=== PATIENT | female | born 1955 | race Caucasian/White ===

== ENCOUNTER 2019-07-16 11:41 | Inpatient (IN) ==
[2019-07-16] MEDS ORDERED: Ondansetron ODT 4 MG TAB.RAPDIS SL PRN (14:12)
[2019-07-16] MEDS: *HR* OxyCODONE Immed Rel 5 MG TABLET PO PRN (16:33)
[2019-07-16] MEDS: Aspirin Enteric Coated 81 MG Tablet PO SCH (20:12)
[2019-07-16] MEDS: Multivit/Ca/Min/Fe/FA 1 TAB TABLET PO SCH (20:14)
[2019-07-16] MEDS: FLUoxetine 20 MG CAPSULE PO SCH (20:14)
[2019-07-16] MEDS: valACYclovir 500 MG TABLET PO SCH (20:15)
[2019-07-16] MEDS ORDERED: Cholecalciferol (D-3) 1,000 UNIT (25MCG) TABLET PO SCH (21:00)
[2019-07-17] MEDS: *HR* OxyCODONE Immed Rel 5 MG TABLET PO PRN ×2 (00:55→19:59)
[2019-07-17 06:12] LABS: Basophils # 0.1 K/mcL (0.0-0.2); Basophils % 0.6 %; Eosinophils # 0.4 K/mcL (0.0-0.6); Eosinophils % 4.3 %; Hematocrit 29.7 % (35.3-44.9); Hemoglobin 10.1 g/dL (11.5-15.4); Immature Granulocytes % 0.3 % (0-4); Lymphocytes # 5.1 K/mcL (0.6-4.6); Lymphocytes % 54.6 %; Mean Corpuscular Hemoglobin 33.6 pg (28.0-33.3); Mean Corpuscular Volume 98.7 fL (83.0-100.0); Mean Platelet Volume 11.8 fL (9.4-12.4); Monocytes # 1.4 K/mcL (0.0-1.3); Monocytes % 14.6 %; Neutrophils # 2.4 K/mcL (1.6-8.9); Platelet Count 259 K/mcL (140-400); Red Blood Count 3.01 M/mcL (3.82-4.97); Red Cell Distribution Width 12.9 % (11.5-14.5); Segmented Neutrophils % 25.6 %; White Blood Count 9.4 K/mcL (4.3-11.1)
[2019-07-17 06:26] LABS: BUN/Creatinine Ratio 18 (6-26); Blood Urea Nitrogen 12 mg/dL (8-23); Calcium 8.4 mg/dL (8.6-10.3); Carbon Dioxide 28 mEq/L (23-29); Chloride 105 mEq/L (98-107); Glucose 96 mg/dL (70-105); Osmolality,Calculated 286 (280-300); Sodium 138 mEq/L (136-145); eGFR For African Americans > 60 (> 60); eGFR For Non-African Americans > 60 (> 60)
[2019-07-17] MEDS ORDERED: Cholecalciferol (D-3) 1,000 UNIT (25MCG) TABLET PO ONE (08:09)
[2019-07-17] MEDS ORDERED: VIT B COMPLEX AND C PO SCH (09:00)
[2019-07-17] MEDS ORDERED: [UNRECOGNIZED DRUG - OTHER] PO SCH (09:00)
[2019-07-17] MEDS ORDERED: FOLIC ACID PO SCH (09:00)
[2019-07-17] MEDS: Cholecalciferol (D-3) 1,000 UNIT (25MCG) TABLET PO SCH (16:18)
[2019-07-17] MEDS: Multivit/Ca/Min/Fe/FA 1 TAB TABLET PO SCH (19:59)
[2019-07-17] MEDS: FLUoxetine 20 MG CAPSULE PO SCH (19:59)
[2019-07-17] MEDS: hydrOXYzine pamoate 25 MG CAPSULE PO PRN (19:59)
[2019-07-17] MEDS: Aspirin Enteric Coated 81 MG Tablet PO SCH (20:00)
[2019-07-17] MEDS: valACYclovir 500 MG TABLET PO SCH (20:00)
[2019-07-18] MEDS: *HR* Enoxaparin 40 MG/0.4 ML SYRINGE SQ SCH (05:01)
[2019-07-18] MEDS: Cholecalciferol (D-3) 1,000 UNIT (25MCG) TABLET PO SCH (09:08)
[2019-07-18] MEDS: *HR* OxyCODONE Immed Rel 5 MG TABLET PO PRN (09:12)
[2019-07-18] MEDS: Aspirin Enteric Coated 81 MG Tablet PO SCH (19:30)
[2019-07-18] MEDS: FLUoxetine 20 MG CAPSULE PO SCH (19:30)
[2019-07-18] MEDS: hydrOXYzine pamoate 25 MG CAPSULE PO PRN (19:31)
[2019-07-18] MEDS: Multivit/Ca/Min/Fe/FA 1 TAB TABLET PO SCH (19:32)
[2019-07-18] MEDS: valACYclovir 500 MG TABLET PO SCH (19:32)
[2019-07-19] MEDS: *HR* OxyCODONE Immed Rel 5 MG TABLET PO PRN ×3 (00:32→15:35)
[2019-07-19 00:36] LABS: Bilirubin,Urine Negative (Negative); Blood,Urine Negative (Negative); Clarity,Urine Slightly Cloudy (Clear); Glucose,Urine (UA) Normal (Normal); Ketones,Urine Negative (Negative); Leukocyte Esterase,Urine Small (Negative); Nitrite,Urine Negative (Negative); PH,Urine 6.5 pH Units (5.0-8.0); Protein,Urine Negative (Neg-Trace); Specific Gravity,Urine 1.015 (1.010-1.025); Urobilinogen,Urine Normal (Normal)
[2019-07-19 00:55] LABS: Color,Urine Yellow (Yellow)
[2019-07-19 00:56] LABS: Bacteria,Urine Few per hpf (None-Few); Squamous Epithelial Cell,Urine Few per lpf (None-Few)
[2019-07-19] MEDS: *HR* Enoxaparin 40 MG/0.4 ML SYRINGE SQ SCH (04:31)
[2019-07-19] MEDS: Cholecalciferol (D-3) 1,000 UNIT (25MCG) TABLET PO SCH (08:22)
[2019-07-19] MEDS: valACYclovir 500 MG TABLET PO SCH (20:48)
[2019-07-19] MEDS: FLUoxetine 20 MG CAPSULE PO SCH (20:49)
[2019-07-19] MEDS: Multivit/Ca/Min/Fe/FA 1 TAB TABLET PO SCH (20:49)
[2019-07-19] MEDS: Aspirin Enteric Coated 81 MG Tablet PO SCH (20:49)
[2019-07-19] MEDS: hydrOXYzine pamoate 25 MG CAPSULE PO PRN (20:49)
[2019-07-19] MEDS ORDERED: Pregabalin 25 MG CAPSULE PO ONE (22:12)
[2019-07-20] MEDS: *HR* Enoxaparin 40 MG/0.4 ML SYRINGE SQ SCH (04:47)
[2019-07-20] MEDS: *HR* OxyCODONE Immed Rel 5 MG TABLET PO PRN ×2 (04:47→23:24)
[2019-07-20] MEDS: Cholecalciferol (D-3) 1,000 UNIT (25MCG) TABLET PO SCH (08:24)
[2019-07-20] MEDS: Pregabalin 50 MG CAPSULE PO SCH ×2 (16:25→21:20)
[2019-07-20] MEDS: Aspirin Enteric Coated 81 MG Tablet PO SCH (21:18)
[2019-07-20] MEDS: Multivit/Ca/Min/Fe/FA 1 TAB TABLET PO SCH (21:18)
[2019-07-20] MEDS: FLUoxetine 20 MG CAPSULE PO SCH (21:18)
[2019-07-20] MEDS: valACYclovir 500 MG TABLET PO SCH (21:20)
[2019-07-20] MEDS: Sennosides/Docusate Sodium TABLET PO SCH (21:21)
[2019-07-20] MEDS: hydrOXYzine pamoate 25 MG CAPSULE PO PRN (21:21)
[2019-07-21] MEDS: *HR* Enoxaparin 40 MG/0.4 ML SYRINGE SQ SCH (06:36)
[2019-07-21] MEDS: Cholecalciferol (D-3) 1,000 UNIT (25MCG) TABLET PO SCH (08:36)
[2019-07-21] MEDS: *HR* OxyCODONE Immed Rel 5 MG TABLET PO PRN ×2 (08:36→23:20)
[2019-07-21] MEDS: Pregabalin 50 MG CAPSULE PO SCH ×2 (08:36→21:04)
[2019-07-21] MEDS: Sennosides/Docusate Sodium TABLET PO SCH ×2 (08:36→21:05)
[2019-07-21] MEDS: Aspirin Enteric Coated 81 MG Tablet PO SCH (21:03)
[2019-07-21] MEDS: FLUoxetine 20 MG CAPSULE PO SCH (21:04)
[2019-07-21] MEDS: Multivit/Ca/Min/Fe/FA 1 TAB TABLET PO SCH (21:05)
[2019-07-21] MEDS: valACYclovir 500 MG TABLET PO SCH (21:06)
[2019-07-22] MEDS: *HR* Enoxaparin 40 MG/0.4 ML SYRINGE SQ SCH (04:11)
[2019-07-22] MEDS: Cholecalciferol (D-3) 1,000 UNIT (25MCG) TABLET PO SCH (08:13)
[2019-07-22] MEDS: Pregabalin 50 MG CAPSULE PO SCH ×2 (08:13→22:09)
[2019-07-22] MEDS: Sennosides/Docusate Sodium TABLET PO SCH ×2 (08:13→22:10)
[2019-07-22] MEDS: *HR* OxyCODONE Immed Rel 5 MG TABLET PO PRN (08:14)
[2019-07-22] MEDS: Aspirin Enteric Coated 81 MG Tablet PO SCH (22:08)
[2019-07-22] MEDS: valACYclovir 500 MG TABLET PO SCH (22:09)
[2019-07-22] MEDS: Multivit/Ca/Min/Fe/FA 1 TAB TABLET PO SCH (22:10)
[2019-07-22] MEDS: FLUoxetine 20 MG CAPSULE PO SCH (22:10)
[2019-07-23] MEDS: *HR* OxyCODONE Immed Rel 5 MG TABLET PO PRN ×2 (01:27→11:36)
[2019-07-23] MEDS: *HR* Enoxaparin 40 MG/0.4 ML SYRINGE SQ SCH (06:41)
[2019-07-23 07:55] VITALS: BP 107/67
[2019-07-23] MEDS: Pregabalin 50 MG CAPSULE PO SCH (09:03)
[2019-07-23] MEDS: Sennosides/Docusate Sodium TABLET PO SCH (09:03)
[2019-07-23] MEDS: Cholecalciferol (D-3) 1,000 UNIT (25MCG) TABLET PO SCH (09:03)
== END 2019-07-23 13:00 | disposition home health service (06) | DRG 561 ==
LOC: INPGRE 11:41
PROVIDERS: ADMIT Family Medicine; ATTEND Family Medicine

== ENCOUNTER 2021-10-18 12:15 | Inpatient (IN) ==
[2021-10-18] MEDS ORDERED: Ipratropium/Albuterol Neb 3 ML IH PRN (16:41)
[2021-10-18] MEDS ORDERED: Melatonin 3 MG TABLET PO PRN (16:46)
[2021-10-18] MEDS ORDERED: (Diclofenac Sodium [Arthritis Pain] 100 GM Gel) TP PRN (16:51)
[2021-10-18] MEDS: *HR* OxyCODONE Immed Rel 5 MG TABLET PO PRN ×2 (17:19→23:57)
[2021-10-18] MEDS: Ondansetron ODT 4 MG TAB.RAPDIS SL PRN (17:20)
[2021-10-18] MEDS: Acetaminophen 325 MG TABLET PO PRN (20:09)
[2021-10-18] MEDS: hydrOXYzine pamoate 25 MG CAPSULE PO SCH (20:09)
[2021-10-18] MEDS: FLUoxetine 20 MG CAPSULE PO SCH (20:10)
[2021-10-18] MEDS: Pregabalin 75 MG CAPSULE PO SCH (20:10)
[2021-10-18] MEDS: MELATONIN 10 MG PO SCH (20:14)
[2021-10-18] MEDS: tiZANidine 4 MG TABLET PO PRN (23:57)
[2021-10-19] MEDS ORDERED: 0.9 % Sodium Chloride 500 ML IV ONE ×2 (04:36→10:17)
[2021-10-19 05:27] LABS: Hemoglobin 9.5 g/dL (11.5-15.4); Mean Corpuscular HGB Conc 30.6 g/dL (31.6-35.5); Mean Corpuscular Hemoglobin 27.2 pg (28.0-33.3); Mean Corpuscular Volume 88.8 fL (83.0-100.0); Mean Platelet Volume 11.3 fL (9.4-12.4); Platelet Count 305 K/mcL (140-400); Red Blood Count 3.49 M/mcL (3.82-4.97); Red Cell Distribution Width 23.8 % (11.5-14.5); White Blood Count 12.9 K/mcL (4.3-11.1)
[2021-10-19] MEDS: Ondansetron ODT 4 MG TAB.RAPDIS SL PRN ×2 (05:33→17:19)
[2021-10-19] MEDS: *HR* Enoxaparin 40 MG/0.4 ML SYRINGE SQ SCH (05:33)
[2021-10-19] MEDS: Acetaminophen 325 MG TABLET PO PRN (05:33)
[2021-10-19] MEDS: *HR* OxyCODONE Immed Rel 5 MG TABLET PO PRN ×2 (08:04→17:11)
[2021-10-19] MEDS: tiZANidine 4 MG TABLET PO PRN ×2 (08:04→19:43)
[2021-10-19] MEDS: Pregabalin 75 MG CAPSULE PO SCH ×2 (08:05→19:44)
[2021-10-19] MEDS: hydrOXYzine pamoate 25 MG CAPSULE PO SCH ×3 (08:05→19:44)
[2021-10-19] MEDS: Cholecalciferol (D-3) 1,000 UNIT (25MCG) TABLET PO SCH (08:07)
[2021-10-19] MEDS: Loratadine 10 MG TABLET PO SCH (08:08)
[2021-10-19] MEDS ORDERED: Ondansetron 4 MG/2 ML VIAL IVP ONE (10:29)
[2021-10-19 10:44] LABS: Bilirubin,Urine Negative (Negative); Blood,Urine Negative (Negative); Clarity,Urine Clear (Clear); Color,Urine Yellow (Yellow); Glucose,Urine (UA) Normal (Normal); Ketones,Urine Negative (Negative); Leukocyte Esterase,Urine Negative (Negative); Nitrite,Urine Negative (Negative); PH,Urine 7.5 pH Units (5.0-8.0); Protein,Urine Negative (Neg-Trace); Specific Gravity,Urine 1.015 (1.010-1.025); Urobilinogen,Urine Normal (Normal)
[2021-10-19 11:03] LABS: Alanine Aminotransferase 9 Units/L (7-52); Alkaline Phosphatase 65 Units/L (34-104); Aspartate Amino Transferase 23 Units/L (13-39); BUN/Creatinine Ratio 15 (6-26); Bilirubin,Total 0.4 mg/dL (0.3-1.0); Blood Urea Nitrogen 11 mg/dL (8-23); Calcium 8.2 mg/dL (8.6-10.3); Carbon Dioxide 31 mEq/L (23-29); Chloride 99 mEq/L (98-107); Glucose 102 mg/dL (70-105); Magnesium 1.9 mg/dL (1.6-2.6); Osmolality,Calculated 280 (280-300); Potassium 4.3 mEq/L (3.5-5.1); Sodium 135 mEq/L (136-145); eGFR For African Americans > 60 (> 60); eGFR For Non-African Americans > 60 (> 60)
[2021-10-19] MEDS ORDERED: 0.9 % Sodium Chloride 500 ML IVC ONE (11:13)
[2021-10-19] MEDS: 0.9 % Sodium Chloride 1,000 ML IVC SCH ×2 (11:34→19:46)
[2021-10-19] MEDS: cefTRIAXone 1,000 MG in 0.9 % Sodium Chloride 10 ML IVP SCH (12:28)
[2021-10-19 15:09] LABS: C-Reactive Protein 57 mg/L (Less than 10)
[2021-10-19 19:23] LABS: Adenovirus Not Detected (Not Detect); Bordetella Pertussis Not Detected (Not Detect); Chlamydophila pneumoniae Not Detected (Not Detect); Coronavirus 229E Not Detected (Not Detect); Coronavirus HKU1 Not Detected (Not Detect); Coronavirus NL63 Not Detected (Not Detect); Coronavirus OC43 Not Detected (Not Detect); Human Metapneumovirus Not Detected (Not Detect); Human Rhinovirus/Enterovirus Not Detected (Not Detect); Influenza A Subtype 2009 H1 Not Detected (Not Detect); Influenza B Not Detected (Not Detect); Mycoplasma pneumoniae Not Detected (Not Detect); Parainfluenza Virus 1 Not Detected (Not Detect); Parainfluenza Virus 2 Not Detected (Not Detect); Parainfluenza Virus 3 Not Detected (Not Detect); Parainfluenza Virus 4 Not Detected (Not Detect); Respiratory Syncytial Virus Not Detected (Not Detect); SARS-CoV-2 Not Detected (Not Detect)
[2021-10-19] MEDS: FLUoxetine 20 MG CAPSULE PO SCH (19:43)
[2021-10-19] MEDS: MELATONIN 10 MG PO SCH (21:18)
[2021-10-20] MEDS: Acetaminophen 325 MG TABLET PO PRN ×2 (04:02→15:56)
[2021-10-20] MEDS: *HR* Enoxaparin 40 MG/0.4 ML SYRINGE SQ SCH (04:02)
[2021-10-20] MEDS: 0.9 % Sodium Chloride 1,000 ML IVC SCH ×3 (04:03→20:28)
[2021-10-20] MEDS: Ondansetron ODT 4 MG TAB.RAPDIS SL PRN ×2 (04:03→12:34)
[2021-10-20] MEDS: *HR* OxyCODONE Immed Rel 5 MG TABLET PO PRN ×3 (05:04→20:36)
[2021-10-20] MEDS: Pregabalin 75 MG CAPSULE PO SCH ×2 (07:52→20:29)
[2021-10-20] MEDS: Cholecalciferol (D-3) 1,000 UNIT (25MCG) TABLET PO SCH (07:52)
[2021-10-20] MEDS: Loratadine 10 MG TABLET PO SCH (07:52)
[2021-10-20] MEDS: hydrOXYzine pamoate 25 MG CAPSULE PO SCH ×3 (07:52→20:29)
[2021-10-20] MEDS: tiZANidine 4 MG TABLET PO PRN ×2 (07:55→15:56)
[2021-10-20] MEDS ORDERED: CefTRIAXone 1,000 MG VIAL ONE (11:01)
[2021-10-20] MEDS: cefTRIAXone 1,000 MG in 0.9 % Sodium Chloride 10 ML IVP SCH (11:39)
[2021-10-20] MEDS: FLUoxetine 20 MG CAPSULE PO SCH (20:29)
[2021-10-21] MEDS: MELATONIN 10 MG PO SCH (00:30)
[2021-10-21] MEDS: *HR* OxyCODONE Immed Rel 5 MG TABLET PO PRN ×3 (04:28→17:35)
[2021-10-21] MEDS: Ondansetron ODT 4 MG TAB.RAPDIS SL PRN ×2 (04:28→17:45)
[2021-10-21] MEDS: 0.9 % Sodium Chloride 1,000 ML IVC SCH ×2 (04:28→11:19)
[2021-10-21] MEDS: *HR* Enoxaparin 40 MG/0.4 ML SYRINGE SQ SCH (04:28)
[2021-10-21 05:51] LABS: BUN/Creatinine Ratio 18 (6-26); Blood Urea Nitrogen 13 mg/dL (8-23); Calcium 8.4 mg/dL (8.6-10.3); Carbon Dioxide 18 mEq/L (23-29); Chloride 108 mEq/L (98-107); Glucose 72 mg/dL (70-105); Magnesium 1.8 mg/dL (1.6-2.6); Osmolality,Calculated 283 (280-300); Potassium 4.7 mEq/L (3.5-5.1); Sodium 137 mEq/L (136-145); eGFR For African Americans > 60 (> 60); eGFR For Non-African Americans > 60 (> 60)
[2021-10-21] MEDS: Acetaminophen 325 MG TABLET PO PRN (06:43)
[2021-10-21 08:10] LABS: Hematocrit 30.3 % (35.3-44.9); Hemoglobin 9.6 g/dL (11.5-15.4); Mean Corpuscular HGB Conc 31.7 g/dL (31.6-35.5); Mean Corpuscular Hemoglobin 28.2 pg (28.0-33.3); Mean Corpuscular Volume 88.9 fL (83.0-100.0); Mean Platelet Volume 11.9 fL (9.4-12.4); Platelet Count 327 K/mcL (140-400); Red Blood Count 3.41 M/mcL (3.82-4.97); Red Cell Distribution Width 23.4 % (11.5-14.5)
[2021-10-21] MEDS: Loratadine 10 MG TABLET PO SCH (09:11)
[2021-10-21] MEDS: hydrOXYzine pamoate 25 MG CAPSULE PO SCH ×3 (09:11→22:10)
[2021-10-21] MEDS: Pregabalin 75 MG CAPSULE PO SCH ×2 (09:11→22:11)
[2021-10-21] MEDS: Cholecalciferol (D-3) 1,000 UNIT (25MCG) TABLET PO SCH (09:11)
[2021-10-21] MEDS: tiZANidine 4 MG TABLET PO PRN (09:11)
[2021-10-21] MEDS: cefTRIAXone 1,000 MG in 0.9 % Sodium Chloride 10 ML IVP SCH (11:20)
[2021-10-21 11:45] LABS: C-Reactive Protein 147 mg/L (Less than 10)
[2021-10-21] MEDS: FLUoxetine 20 MG CAPSULE PO SCH (22:11)
[2021-10-21] MEDS: Melatonin 3 MG TABLET PO SCH (22:11)
[2021-10-22] MEDS: *HR* OxyCODONE Immed Rel 5 MG TABLET PO PRN ×3 (02:31→17:54)
[2021-10-22] MEDS: tiZANidine 4 MG TABLET PO PRN ×2 (02:31→13:48)
[2021-10-22 05:09] LABS: Hematocrit 28.8 % (35.3-44.9); Hemoglobin 9.1 g/dL (11.5-15.4); Mean Corpuscular HGB Conc 31.6 g/dL (31.6-35.5); Mean Corpuscular Hemoglobin 27.7 pg (28.0-33.3); Mean Corpuscular Volume 87.8 fL (83.0-100.0); Mean Platelet Volume 12.3 fL (9.4-12.4); Platelet Count 348 K/mcL (140-400); Red Blood Count 3.28 M/mcL (3.82-4.97); Red Cell Distribution Width 23.3 % (11.5-14.5); White Blood Count 9.9 K/mcL (4.3-11.1)
[2021-10-22 05:23] LABS: BUN/Creatinine Ratio 14 (6-26); Blood Urea Nitrogen 9 mg/dL (8-23); Calcium 8.6 mg/dL (8.6-10.3); Carbon Dioxide 25 mEq/L (23-29); Chloride 104 mEq/L (98-107); Glucose 83 mg/dL (70-105); Magnesium 1.9 mg/dL (1.6-2.6); Osmolality,Calculated 282 (280-300); Potassium 4.3 mEq/L (3.5-5.1); Sodium 137 mEq/L (136-145); eGFR For African Americans > 60 (> 60); eGFR For Non-African Americans > 60 (> 60)
[2021-10-22] MEDS: *HR* Enoxaparin 40 MG/0.4 ML SYRINGE SQ SCH (06:59)
[2021-10-22] MEDS: Pregabalin 75 MG CAPSULE PO SCH ×2 (09:19→20:57)
[2021-10-22] MEDS: Ondansetron ODT 4 MG TAB.RAPDIS SL PRN ×2 (09:19→16:59)
[2021-10-22] MEDS: Cholecalciferol (D-3) 1,000 UNIT (25MCG) TABLET PO SCH (09:19)
[2021-10-22] MEDS: Loratadine 10 MG TABLET PO SCH (09:19)
[2021-10-22] MEDS: hydrOXYzine pamoate 25 MG CAPSULE PO SCH ×3 (09:19→20:58)
[2021-10-22 12:10] LABS: C-Reactive Protein 56 mg/L (Less than 10)
[2021-10-22] MEDS: cefTRIAXone 1,000 MG in 0.9 % Sodium Chloride 10 ML IVP SCH (12:39)
[2021-10-22 15:40] LABS: Bilirubin,Urine Negative (Negative); Blood,Urine Negative (Negative); Clarity,Urine Clear (Clear); Color,Urine Yellow (Yellow); Glucose,Urine (UA) Normal (Normal); Ketones,Urine Negative (Negative); Leukocyte Esterase,Urine Negative (Negative); Nitrite,Urine Negative (Negative); Protein,Urine Negative (Neg-Trace); Urobilinogen,Urine Normal (Normal)
[2021-10-22] MEDS: FLUoxetine 20 MG CAPSULE PO SCH (20:57)
[2021-10-22] MEDS: Melatonin 3 MG TABLET PO SCH (20:58)
[2021-10-22] MEDS: Acetaminophen 325 MG TABLET PO PRN (20:58)
[2021-10-23] MEDS: *HR* OxyCODONE Immed Rel 5 MG TABLET PO PRN ×3 (04:20→16:21)
[2021-10-23] MEDS: tiZANidine 4 MG TABLET PO PRN ×2 (04:20→13:59)
[2021-10-23] MEDS: *HR* Enoxaparin 40 MG/0.4 ML SYRINGE SQ SCH (04:21)
[2021-10-23] MEDS: Cholecalciferol (D-3) 1,000 UNIT (25MCG) TABLET PO SCH (08:14)
[2021-10-23] MEDS: hydrOXYzine pamoate 25 MG CAPSULE PO SCH ×3 (08:14→20:25)
[2021-10-23] MEDS: Ondansetron ODT 4 MG TAB.RAPDIS SL PRN ×2 (08:15→16:20)
[2021-10-23] MEDS: Pregabalin 75 MG CAPSULE PO SCH ×2 (08:17→20:25)
[2021-10-23] MEDS: Loratadine 10 MG TABLET PO SCH (08:18)
[2021-10-23] MEDS: cefTRIAXone 1,000 MG in 0.9 % Sodium Chloride 10 ML IVP SCH (11:52)
[2021-10-23] MEDS: Melatonin 3 MG TABLET PO SCH (20:27)
[2021-10-23] MEDS: FLUoxetine 20 MG CAPSULE PO SCH (20:27)
[2021-10-23] MEDS: Acetaminophen 325 MG TABLET PO PRN (20:28)
[2021-10-24] MEDS: *HR* OxyCODONE Immed Rel 5 MG TABLET PO PRN (04:24)
[2021-10-24] MEDS: tiZANidine 4 MG TABLET PO PRN ×2 (04:25→15:20)
[2021-10-24] MEDS: *HR* Enoxaparin 40 MG/0.4 ML SYRINGE SQ SCH (04:25)
[2021-10-24 04:33] LABS: Hematocrit 31.2 % (35.3-44.9); Mean Corpuscular HGB Conc 32.1 g/dL (31.6-35.5); Mean Corpuscular Hemoglobin 28.2 pg (28.0-33.3); Mean Corpuscular Volume 87.9 fL (83.0-100.0); Mean Platelet Volume 11.5 fL (9.4-12.4); Platelet Count 413 K/mcL (140-400); Red Blood Count 3.55 M/mcL (3.82-4.97); Red Cell Distribution Width 22.9 % (11.5-14.5); White Blood Count 10.5 K/mcL (4.3-11.1)
[2021-10-24 04:43] LABS: BUN/Creatinine Ratio 16 (6-26); Blood Urea Nitrogen 12 mg/dL (8-23); Calcium 9.1 mg/dL (8.6-10.3); Carbon Dioxide 28 mEq/L (23-29); Chloride 102 mEq/L (98-107); Glucose 96 mg/dL (70-105); Osmolality,Calculated 284 (280-300); Sodium 137 mEq/L (136-145); eGFR For African Americans > 60 (> 60); eGFR For Non-African Americans > 60 (> 60)
[2021-10-24] MEDS: hydrOXYzine pamoate 25 MG CAPSULE PO SCH ×3 (08:16→19:50)
[2021-10-24] MEDS: Cholecalciferol (D-3) 1,000 UNIT (25MCG) TABLET PO SCH (08:16)
[2021-10-24] MEDS: Pregabalin 75 MG CAPSULE PO SCH ×2 (08:16→19:49)
[2021-10-24] MEDS: Ondansetron ODT 4 MG TAB.RAPDIS SL PRN ×2 (08:17→20:04)
[2021-10-24] MEDS: Loratadine 10 MG TABLET PO SCH (08:17)
[2021-10-24] MEDS ORDERED: 0.9 % Sodium Chloride 1,000 ML ONE (09:44)
[2021-10-24] MEDS ORDERED: 0.9 % Sodium Chloride 1,000 ML IVC SCH (10:15)
[2021-10-24 11:23] LABS: C-Reactive Protein 29 mg/L (Less than 10)
[2021-10-24] MEDS: cefTRIAXone 1,000 MG in 0.9 % Sodium Chloride 10 ML IVP SCH (12:11)
[2021-10-24] MEDS ORDERED: tiZANidine 4 MG TABLET PO SCH (17:00)
[2021-10-24] MEDS: Acetaminophen 325 MG TABLET PO PRN (17:52)
[2021-10-24] MEDS: FLUoxetine 20 MG CAPSULE PO SCH (19:49)
[2021-10-24] MEDS: Melatonin 3 MG TABLET PO SCH (19:50)
[2021-10-24] MEDS ORDERED: Ibuprofen 600 MG TABLET PO ONE (20:02)
[2021-10-25] MEDS: *HR* Enoxaparin 40 MG/0.4 ML SYRINGE SQ SCH (06:27)
[2021-10-25 06:39] LABS: Hemoglobin 10.3 g/dL (11.5-15.4); Mean Corpuscular HGB Conc 32.2 g/dL (31.6-35.5); Mean Corpuscular Hemoglobin 28.3 pg (28.0-33.3); Mean Corpuscular Volume 87.9 fL (83.0-100.0); Mean Platelet Volume 11.8 fL (9.4-12.4); Platelet Count 393 K/mcL (140-400); Red Blood Count 3.64 M/mcL (3.82-4.97); Red Cell Distribution Width 22.9 % (11.5-14.5); White Blood Count 7.4 K/mcL (4.3-11.1)
[2021-10-25 06:53] LABS: BUN/Creatinine Ratio 21 (6-26); Blood Urea Nitrogen 15 mg/dL (8-23); Calcium 8.9 mg/dL (8.6-10.3); Carbon Dioxide 23 mEq/L (23-29); Chloride 105 mEq/L (98-107); Glucose 95 mg/dL (70-105); Osmolality,Calculated 287 (280-300); Potassium 3.9 mEq/L (3.5-5.1); Sodium 138 mEq/L (136-145); eGFR For African Americans > 60 (> 60); eGFR For Non-African Americans > 60 (> 60)
[2021-10-25] MEDS: Cholecalciferol (D-3) 1,000 UNIT (25MCG) TABLET PO SCH (09:21)
[2021-10-25] MEDS: Ondansetron ODT 4 MG TAB.RAPDIS SL PRN ×2 (09:22→18:06)
[2021-10-25] MEDS: Loratadine 10 MG TABLET PO SCH (09:22)
[2021-10-25] MEDS: Pregabalin 75 MG CAPSULE PO SCH ×2 (09:22→21:25)
[2021-10-25] MEDS: hydrOXYzine pamoate 25 MG CAPSULE PO SCH ×3 (09:23→21:25)
[2021-10-25] MEDS: *HR* OxyCODONE Immed Rel 5 MG TABLET PO PRN ×3 (09:23→22:55)
[2021-10-25] MEDS: tiZANidine 4 MG TABLET PO PRN (11:41)
[2021-10-25 11:46] LABS: C-Reactive Protein 25 mg/L (Less than 10)
[2021-10-25] MEDS: Acetaminophen 325 MG TABLET PO PRN (13:35)
[2021-10-25] MEDS: cefTRIAXone 1,000 MG in 0.9 % Sodium Chloride 10 ML IVP SCH (13:36)
[2021-10-25] MEDS: Melatonin 3 MG TABLET PO SCH (21:24)
[2021-10-25] MEDS: FLUoxetine 20 MG CAPSULE PO SCH (21:24)
[2021-10-26 04:19] VITALS: O2SAT 97
[2021-10-26] MEDS: *HR* OxyCODONE Immed Rel 5 MG TABLET PO PRN ×2 (05:59→12:25)
[2021-10-26] MEDS: *HR* Enoxaparin 40 MG/0.4 ML SYRINGE SQ SCH (05:59)
[2021-10-26 06:45] VITALS: BP 139/72; PULSE 66; TEMP 99
[2021-10-26] MEDS: Cholecalciferol (D-3) 1,000 UNIT (25MCG) TABLET PO SCH (08:51)
[2021-10-26] MEDS: Pregabalin 75 MG CAPSULE PO SCH (08:51)
[2021-10-26] MEDS: hydrOXYzine pamoate 25 MG CAPSULE PO SCH (08:51)
[2021-10-26] MEDS: Loratadine 10 MG TABLET PO SCH (08:51)
[2021-10-26 11:48] VITALS: RESP 15
== END 2021-10-26 13:15 | disposition home or self-care (01) | DRG 195 ==
LOC: INPGRE 15:40
PROVIDERS: ADMIT Family Medicine; ATTEND Family Medicine